=== PATIENT | male | born 1965 | race African-American/Black ===

== ENCOUNTER 2017-03-09 10:43 | Emergency (ER) | payer OTHER ==
[~2017-03-09] VITALS: Ht 172.7 cm; Wt 68.0 kg
[2017-03-09 11:04] LABS: URINE BILIRUBIN NEGATIVE (Negative); URINE BLOOD NEGATIVE (Negative); URINE COLOR YELLOW; URINE GLUCOSE-RANDOM* NEGATIVE (Negative); URINE KETONES NEGATIVE (Negative); URINE NITRITE NEGATIVE (Negative); URINE PROTEIN (DIPSTICK) NEGATIVE (Negative); URINE UROBILINOGEN 0.2 E.U./dl (0.2-1.0)
[2017-03-09 11:39] LABS: ABSOLUTE NEUTROPHILS 4.4 thou/uL (1.4-8.2); BASOPHILS 1.3 % (0.0-2.0); EOSINOPHILS 2.1 % (0.0-3.0); HEMATOCRIT 40.8 % (42.0-52.0); HEMOGLOBIN 13.7 gm/dL (14.0-18.0); LYMPHOCYTES 18.7 % (24.0-44.0); MANUAL DIFF NO; MCH 29.8 pg (26.0-34.0); MCHC 33.7 g/dL (28.0-37.0); MCV 88.5 fL (80.0-100.0); MONOCYTES 10.1 % (1.0-8.0); PLATELET COUNT 149 thou/uL (150-400); POLYS 67.8 % (36.0-66.0); RBC 4.61 mil/uL (4.50-6.00); RDW 14.2 % (10.5-14.5); WBC 6.5 thou/uL (4.0-11.0)
[2017-03-09 11:45] LABS: CALCIUM 9.2 mg/dL (8.5-10.1); POTASSIUM 3.8 mmol/L (3.5-5.1)
[2017-03-09 11:51] LABS: ALBUMIN 3.5 g/dL (3.4-5.0); TOTAL BILIRUBIN 0.3 mg/dL (<0.1-1.0); TOTAL PROTEIN 7.1 g/dL (6.4-8.2)
[2017-03-09] MEDS ORDERED: PREDNISONE 20 M20 MG PO (12:27)
[2017-03-09] MEDS ORDERED: CYCLOBENZAPRINE5 MG PO (12:27)
[2017-03-09] MEDS ORDERED: TORADOL 10 MG T10 MG PO (13:02)
[2017-03-09 13:28] VITALS: BP 131/95
== END 2017-03-09 13:32 | disposition home or self-care (01) ==
LOC: ER 10:43
PROVIDERS: Physician Assistant
DX: J42 Unspecified chronic bronchitis (principal); M54.9 Dorsalgia, unspecified; F17.210 Nicotine dependence, cigarettes, uncomplicated; F10.99 Alcohol use, unspecified with unspecified alcohol-induced disorder

== ENCOUNTER 2019-09-10 21:04 | Emergency (ER) | payer OTHER ==
[~2019-09-10] VITALS: Ht 172.7 cm; Wt 70.3 kg
[~2019-09-10 21:04] MED LIST: CYCLOBENZAPRINE5 MG PO; PREDNISONE 20 M20 MG PO; TORADOL 10 MG T10 MG PO
[2019-09-10] MEDS ORDERED: ZPAK PO (22:19)
[2019-09-10 22:27] VITALS: BP 151/94
== END 2019-09-10 22:28 | disposition home or self-care (01) ==
LOC: ER 21:04
DX: J20.9 Acute bronchitis, unspecified (principal); R00.0 Tachycardia, unspecified; F17.210 Nicotine dependence, cigarettes, uncomplicated; Z79.899 Other long term (current) drug therapy